=== PATIENT | male | born 1940 | race Caucasian/White ===

== ENCOUNTER 2016-12-06 17:45 | Inpatient (IN) | payer MEDICARE, OTHER ==
[~2016-12-06] VITALS: Ht 165.1 cm; Wt 78.0 kg
[2016-12-06] MEDS ORDERED: ONDANSETRON 4 MG INJ IV STA (23:54)
[2016-12-06] MEDS ORDERED: morphine 4 MG/ML VIAL IV STA (23:54)
[2016-12-06] MEDS ORDERED: SOD CHLORIDE 0.9% 500 ML IV STA (23:54)
[2016-12-07] MEDS ORDERED: LIDOCAINE/MYLANTA 40 ML BTL PO STA (00:09)
[2016-12-07 00:45] LABS: ADD UMIC YES; URINE BILIRUBIN (Dip) 2+ (NEGATIVE); URINE BLOOD (Dip) NEGATIVE (NEGATIVE); URINE COLOR AMBER (YELLOW); URINE GLUCOSE (Dip) NEGATIVE (NEGATIVE); URINE KETONES (Dip) 15 (NEGATIVE); URINE LEUKOCYTE ESTERASE (Dip) NEGATIVE (NEGATIVE); URINE NITRITE (Dip) NEGATIVE (NEGATIVE); URINE TOTAL PROTEIN (Dip) 1+ (NEGATIVE); URINE UROBILINOGEN (Dip) 0.2 E.U./dL (0.1-1.0)
[2016-12-07 00:50] LABS: HEMATOCRIT 38.2 % (42.0-52.0); HEMOGLOBIN 12.8 g/dl (14.0-18.0); LYMPHOCYTES # 1.7 10^3/ul (0.8-2.9); LYMPHOCYTES % 7.8 % (15.0-51.0); MEAN CORPUSCULAR HEMOGLOBIN 29.2 pg (29.0-33.0); MEAN CORPUSCULAR HGB CONC 33.3 g/dl (32.0-37.0); MEAN CORPUSCULAR VOLUME 87.4 fl (82.0-101.0); MEAN PLATELET VOLUME 7.1 fl (7.4-10.4); MONOCYTE # 1.4 10^3/ul (0.3-0.9); MONOCYTES % 6.6 % (0.0-11.0); NEUTROPHIL # 18.5 10^3/ul (1.6-7.5); NEUTROPHILS % 85.6 % (39.0-77.0); PLATELET COUNT 428 10^3/UL (140-440); RED BLOOD COUNT 4.37 10^6/ul (4.70-6.10); RED CELL DISTRIBUTION WIDTH 13.8 % (11.5-14.5); UNCORRECTED WBC 21.7 10^3/ul (4.8-10.8); WHITE BLOOD COUNT 21.7 10^3/ul (4.8-10.8)
[2016-12-07 00:51] LABS: ALBUMIN 4.1 g/dl (3.3-4.9)
[2016-12-07 00:52] LABS: POTASSIUM 3.6 mmol/L (3.5-5.1)
[2016-12-07 00:54] LABS: BILIRUBIN,INDIRECT 0.8 mg/dl (0-1.1); BILIRUBIN,TOTAL 0.8 mg/dl (0.2-1.3); CONDITION 1; CREATININE 1.09 mg/dl (0.61-1.24); LH ANALYZER COMMENTS 1
[2016-12-07 00:55] LABS: ALBUMIN/GLOBULIN RATIO 0.82; CALCIUM 9.7 mg/dl (8.4-10.2); TOTAL PROTEIN 9.1 g/dl (6.1-8.1)
[2016-12-07 01:00] LABS: ICTOTEST NEGATIVE (NEGATIVE); MUCUS,URINE MODERATE; SQUAMOUS EPITHELIAL CELL,UR RARE; URINE RBCS 0-2 /HPF (0)
[2016-12-07 01:01] LABS: BACTERIA,URINE RARE
--- NOTE | 2016-12-07 01:26 | RADRPT ---
PROCEDURE: CT abdomen and pelvis without intravenous contrast. CLINICAL INDICATION: Abdominal pain. TECHNIQUE: CT of the abdomen/pelvis was performed utilizing axial images with reconstructions in s agittal and coronal planes. The administered radiation dose is CTDI 12.9 mGy, DLP 812 mGy-cm. COMPARISON: No pertinent prior examinations were submitted for comparison. FINDINGS: Visualized Chest: There is mild cardiomegaly. Coronary artery calcifications are noted. Abdomen: The liver, spleen, pancreas, and adrenal glands are unremarkable. There is a small millimeter on the prior cholecystectomy is noted. There is extensive fatty infiltr ation within the gallbladder fossa with an amorphous collection of fluid. The collection measures 4 .9 (ap) x 2.8 (tr) x 2.3 (cc) cm in greatest dimensions. There is intrahepatic and extrahepatic andrzej iary ductal dilatation. The common bile duct measures up to 2 cm. A stent is noted within the dist al common bile duct, extending into the duodenum. The kidneys are without hydronephrosis. A small nonobstructive calculus is noted within the interpo lar left kidney. There is no evidence of bowel obstruction. The appendix is normal. No intra-abdominal free air is seen. A few diverticula are noted along the descending and sigmoid colon without evidence of divert iculitis. There is no evidence of intra-abdominal adenopathy or free fluid. Pelvis: A urachal diverticulum is noted along the anterior aspect of the bladder containing 3 calculi. The urinary bladder is underdistended. The prostate is unremarkable. There is no pelvic adenopathy or free fluid. Osseous structures: Unremarkable. IMPRESSION: Status post cholecystectomy with inflammatory changes and a small collection at the gallbladder wade a. A small abscess and / or myeloma is suspected. Marked intrahepatic and extrahepatic biliary ductal dilatation status post biliary stent placement. Small nonobstructive left intrarenal calculus. Mild colonic diverticulosis. Small urachal diverticulum with urinary calculi. RPTAT: HIKT .Jay Alford MD, Date Time Electronically viewed and signed by .Jay Alford MD, on 12/07/2016 01:25 .T/
[2016-12-07] MEDS ORDERED: PIPER-TAZO 3.375 GM IV (PMX) 100 ML IVPB STA (02:09)
[2016-12-07] MEDS ORDERED: VANCOMYCIN 1 GM (PMX) 250 ML IVPB STA (02:09)
--- NOTE | 2016-12-07 02:19 | ERA ---
ER Documentation Chief Complaint Date/Time DATE: 12/07/16 TIME: 02:18 Chief Complaint ABD PAIN, ON AND OFF X1 MONTH, NAUSEA/VOMITING, NO DIARRHEA HPI This is a 76-year-old male with abdominal pain in the epigastric and right upper quadrant on and off for the past month. He has had mild nausea vomiting. No diarrhea. Patient had a cholecystectomy done at an outside hospital. Pain is mild to moderate intensity, colicky in nature with no exacerbating or alleviating factors. Patient complains of low-grade temperatures as well. Vomiting is nonbilious and nonbloody. No other current complaints. ROS All systems reviewed and are negative except as per history of present illness. Allergies Allergies: Coded Allergies: No Known Allergy (Unverified , 12/06/16) PMhx/Soc History of Surgery: Yes (LIVER, GALL BLADDER) Anesthesia Reaction: No Hx Neurological Disorder: No Hx Respiratory Disorders: No Hx Cardiac Disorders: Yes (HTN, HYPERLIPIDS) Hx Psychiatric Problems: No Hx Miscellaneous Medical Probl: No Hx Alcohol Use: No Hx Substance Use: No Hx Tobacco Use: No Smoking Status: Never smoker Physical Exam Vitals Vital Signs Date Time Temp Pulse Resp B/P Pulse Ox O2 Delivery O2 Flow Rate FiO2 12/07/16 01:13 89 22 122/65 92 Room Air 12/06/16 18:03 99.2 102 17 130/69 98 Physical Exam Const: [] Head: Atraumatic Eyes: Normal Conjunctiva ENT: Normal External Ears, Nose and Mouth. Neck: Full range of motion..~ No meningismus. Resp: Clear to auscultation bilaterally Cardio: Regular rate and rhythm, no murmurs Abd: Soft, non tender, non distended. Normal bowel sounds Skin: No petechiae or rashes Back: No midline or flank tenderness Ext: No cyanosis, or edema Neur: Awake and alert Psych: Normal Mood and Affect Result Diagram: 12/07/16 0001 12/07/16 0001 Results 24 hrs Laboratory Tests Test 12/07/16 00:01 12/07/16 00:05 12/07/16 01:19 Alanine Aminotransferase (ALT/SGPT) 42IU/L Albumin 4.1g/dl Albumin/Globulin Ratio 0.82 Alkaline Phosphatase 267IU/L Anion Gap 21 Aspartate Amino Transf (AST/SGOT) 28IU/L Basophils # 0.010^3/ul Basophils % 0.0% Blood Morphology Comment Blood Urea Nitrogen 28mg/dl Calcium Level 9.7mg/dl Carbon Dioxide Level 32mmol/L Chloride Level 92mmol/L Creatinine 1.09mg/dl Direct Bilirubin 0.00mg/dl Eosinophils # 0.010^3/ul Eosinophils % 0.0% Globulin 5.00g/dl Glucose Level 127mg/dl Hematocrit 38.2% Hemoglobin 12.8g/dl Indirect Bilirubin 0.8mg/dl Lipase 57U/L Lymphocytes # 1.710^3/ul Lymphocytes % 7.8% Mean Corpuscular Hemoglobin 29.2pg Mean Corpuscular Hemoglobin Concent 33.3g/dl Mean Corpuscular Volume 87.4fl Mean Platelet Volume 7.1fl Monocytes # 1.410^3/ul Monocytes % 6.6% Neutrophils # 18.510^3/ul Neutrophils % 85.6% Nucleated Red Blood Cells # 0.010^3/ul Nucleated Red Blood Cells % 0.0/100WBC Platelet Count 10973^3/UL Potassium Level 3.6mmol/L Red Blood Count 4.3710^6/ul Red Cell Distribution Width 13.8% Sodium Level 141mmol/L Total Bilirubin 0.8mg/dl Total Protein 9.1g/dl White Blood Count 21.710^3/ul Urine Bacteria RARE Urine Bilirubin 2+ Urine Clarity CLEAR Urine Color ISAIAS Urine Glucose NEGATIVE% Urine Hemoglobin NEGATIVE Urine Ictotest NEGATIVE Urine Ketones 15 Urine Leukocyte Esterase NEGATIVE Urine Microscopic RBC 0-2/HPF Urine Microscopic WBC NONE SEEN/HPF Urine Mucus MODERATE Urine Nitrite NEGATIVE Urine Specific [place] >=1.030 Urine Squamous Epithelial Cells RARE Urine Total Protein 1+ Urine Urobilinogen 0.2 E.U./dL Urine pH 5.5 Lactic Acid Level 1.2mmol/L Current Medications Medications (Trade) Dose Ordered Sig/Zackery Route PRN Reason Start Time Stop Time Status Last Admin Dose Admin Sodium Chloride (NS) 500 ml @ 500 mls/hr Q1H STAT IV 12/06/16 23:54 12/07/16 00:53 DC 12/07/16 00:08 Morphine Sulfate (morphine) 4 mg ONCE STAT IV 12/06/16 23:54 12/07/16 00:02 DC 12/07/16 00:09 Ondansetron HCl (Zofran Inj) 4 mg ONCE STAT IV 12/06/16 23:54 12/07/16 00:02 DC 12/07/16 00:09 Miscellaneous Medication 40 ml 40 ml ONCE STAT PO 12/07/16 00:09 12/07/16 00:11 DC 12/07/16 00:51 Vancomycin HCl 250 ml @ 125 mls/hr ONCE STAT IVPB 12/07/16 02:09 12/07/16 04:08 Piperacillin Sod/ Tazobactam Sod (Zosyn 3.375gm/ 100 ml (Pmx)) 100 ml @ 200 mls/hr ONCE STAT IVPB 12/07/16 02:09 12/07/16 02:38 Procedures/MDM CT shows possible abscess formation in gallbladder fossa. Please see radiologist full dictation for report. CBC: Severe elevation of white count. Normal lactic acid. CMP: [no e/o severe acidosis, alkalosis, renal failure, diabetic ketoacidosis, liver disease] Lipase: [no e/o pancreatitis] PT/INR: [normal coagulation] Urine: [no e/o acute infection or hematuria] Medical decision-making: Patient has what seems to be abscess versus fluid collection in gallbladder fossa stemming from previous surgery. He has been started empirically on antibiotics. Patient will be admitted. Dr. Collazo is on-call for patient's IPA Departure Diagnosis: Primary Impression: Abdominal pain Qualified Code: R10.13 - Epigastric pain Additional Impression: Postoperative abscess Qualified Code: T81.4XXA - Postoperative abscess, initial encounter Condition: Serious NORMA KIM Dec 07, 2016 02:19
[2016-12-07] MEDS ORDERED: ONDANSETRON 4 MG INJ IV PRN (03:00)
[2016-12-07] MEDS ORDERED: morphine 4 MG/ML VIAL IV PRN (03:00)
--- NOTE | 2016-12-07 03:09 | QN ---
Documentation Comment H&P dict a/p \1. gi: prolonged symptoms for 2 years sing gb surg but 2 week sworse with difficulty eating, nauseas, and RUQ pain. some weight loss. ct shows migrating stent and gb fossa fluid collection. plan hida, mrcp, needle drainage of fluid, consider drain, gi eval, anticipate stent replacement TAYLOR KING MD Dec 07, 2016 03:09
[2016-12-07 03:27] VITALS: TEMP 99.6
[2016-12-07 03:34] LABS: INR 1.18; PROTIME 15.1 Sec (12.2-14.2); PT RATIO 1.2
[2016-12-07 03:35] LABS: PARTIAL THROMBOPLASTIN TIME 29.1 Sec (25.0-35.0)
[2016-12-07 05:00] VITALS: BP 141/57; PULSE 83; RESP 18; Ht 165.1 cm; Wt 78.0 kg
[2016-12-07] MEDS: PANTOPRAZOLE (EC) 40 MG TAB PO SCH (06:11)
[2016-12-07] MEDS: metroNIDAZOLE 500 MG/NS (PMX) 100 ML IVPB SCH ×4 (06:12→19:39)
[2016-12-07 07:46] VITALS: BP 127/58; RESP 20
[2016-12-07] MEDS: ACETAMINOPHEN 325 MG TAB PO PRN ×2 (08:18→20:27)
--- NOTE | 2016-12-07 08:21 | HP ---
DATE OF ADMISSION: 12/07/2016 CHIEF COMPLAINT: Abdominal pain. HISTORY OF PRESENT ILLNESS: Mr. De Souza presents to the emergency room at [facility] with a 2 -year history of abdominal pain, bloating, and nausea, which he states began after he had cholecyste ctomy performed approximately 2 years ago at [place]. Subsequent to that he had a stent placed, but he does not recall any of the details of this procedure or why it may have been done. He does n ot recall which doctor may have done this for him, though he does state that it took place at [facility]. He states that in the last 2 weeks or so this pain, nausea, and bloating has been somewhat wo rse. He has had difficulty tolerating food, though he is able to keep water down. He states he is losing weight, though he does not quantify how much. It is clear that he has had to take in his bel t at least 1 more notch. PAST MEDICAL HISTORY: Nil. MEDICATIONS: As an outpatient, nil. ALLERGIES: THE PATIENT STATES HE MAY BE ALLERGIC TO PENICILLIN. SOCIAL HISTORY: Patient lives in [place] with his . He is independent of activities of daily l iving. Does not use a cane or walker. Denies tobacco, alcohol, or illicit drug use. FAMILY HISTORY: Noncontributory. REVIEW OF SYSTEMS: Five systems were reviewed and found not to be revealing. PHYSICAL EXAMINATION: VITAL SIGNS: Blood pressure is 122/65, pulse rate 89, respirations 22, temperature 99.2. GENERAL: A pleasant elderly man in no acute distress, alert. HEENT: Normocephalic, atraumatic, without evident scleral icterus, perioral cyanosis. Mucous membr anes are moist. NECK: Soft and supple without masses. No evidence of jugular venous distention or carotid bruits. CHEST: Clear to auscultation and percussion bilaterally. HEART: Regular rate and rhythm. S1, S2. No added sounds. ABDOMEN: Soft, minimally tender in the right upper quadrant, though patient identifies this as the location of his greatest symptomatology. There is no palpable hepatosplenomegaly. EXTREMITIES: Without clubbing, cyanosis or edema. SKIN: Without rashes. NEUROLOGIC: Grossly intact. LABORATORY STUDIES: Reveal a hemoglobin of 12.8 g/dL, white count 21,700, platelets of 428,000. So dium is 141, potassium 3.6, chloride 92, bicarbonate 22, BUN 28, creatinine 1.09, glucose 127. Live r function tests reveal an AST of 28, ALT 42, alkaline phosphatase 267. Total bilirubin 0.8. CT sc an of abdomen performed without contrast reveals a collection of fluid in the gallbladder fossa as w ell as a stent which is migrating out of the common bile duct and into the duodenum. There is intra and extrahepatic biliary dilatation identified. ASSESSMENT AND PLAN: 1. Gastrointestinal: The patient with dyspepsia, abdominal pain, and weight loss, unclear etiology , likely related to the underlying disease for which patient had a biliary stent placed. Stent is n ow migrating out of its intended location. We will plan to obtain Gastroenterology consultation [facility] Dr. Calle, and anticipate that stent replacement will become necessary on this admission. 2. Patient with collection of fluid in the gallbladder fossa of unclear etiology or clinical signif icance. We will obtain a CT-guided needle drainage of this fluid, send for culture and cytology. C onsider indwelling pigtail drain for this. 3. Prophylaxis with thromboembolic disease giovanni. Dictated By: TAYLOR KING MD RER/NTS Conf#: [id number] DID#: [id number]
[2016-12-07] MEDS: AZTREONAM 1 GM/NS (PMX) 50 ML IVPB SCH ×4 (08:51→18:17)
--- NOTE | 2016-12-07 10:22 | RADRPT ---
PROCEDURE: MRCP. CLINICAL INDICATION: Right upper quadrant pain. TECHNIQUE: MRCP was performed on the a high-resolution, high Aisha field strength scanner. Patien t was examined without contrast. 3-D coronal rotating MIP images of the biliary tree are available for review. COMPARISON: CT abdomen and pelvis 12/07/2016. FINDINGS: Gallbladder is surgically absent. There is a multiloculated unorganized fluid collection in the riki gical bed. The largest pocket measures up to 5 x 2.5 cm on single axial image 4-17. Significant in flammatory changes are seen in the right upper quadrant. There is marked intrahepatic and extrahepa tic biliary ductal dilatation. There is approximately 3 cm hypointense oval-shaped structure in the distal CBD. The pancreatic duct, as visualized, is equally unremarkable. IMPRESSION: 1. Markedly dilated intrahepatic and extrahepatic biliary ducts. Approximately 3 cm oval-shaped fi lling defect in the common bile duct. Recommend ERCP for further evaluation. 2. Multiloculated amorphous unorganized fluid collection in the cholecystectomy bed. The largest p ocket measures up to 5 x 2.5 cm. Again this might represent developing abscess versus biloma. RPTAT: BB .Yvan Gutierrez MD, MD Date Time Electronically viewed and signed by .Yvan Gutierrez MD, MD on 12/07/2016 10:21 .O/
[2016-12-07] MEDS: SOD CHLORIDE 0.9% 1,000 ML IV SCH (11:17)
--- NOTE | 2016-12-07 14:41 | PN ---
Date/Time of Note Date/Time of Note DATE: 12/07/16 TIME: 14:31 Assessment/Plan VTE Prophylaxis VTE Prophylaxis Intervention: SCD's Lines/Catheters IV Catheter Type (from Nrsg): Saline Lock Assessment/Plan Assessment/Plan 76 yo male with: 1. Migrated biliary stent with intra hepatic and CBD dilatation, patient presented with dyspepsia, abdominal pain, and weight loss. Leukocytosis concerning for infected stent Continue Aztreonam and Flagyl Dr Calle has been consulted for ERCP 2. Small collection of fluid in the gallbladder fossa of unclear etiology or clinical significance, too small for IR drainage per Dr Arroyo 3. Hypertension: patient does not remember medication he takes for HTN 4. Hyperlipidemia: on statin rx but doesn't remember which medication Prophylaxis: PPI for GI ppx and SCDs for DVT ppx Disposition: GI c/s pending. Subjective 24 Hr Interval Summary Free Text/Dictation Per IR, Dr Arroyo fluid collection too small for drainage Awaiting evaluation by GI Dr Calle for needs for ERCP Exam/Review of Systems Vital Signs Vitals Vital Signs Date Time Temp Pulse Resp B/P Pulse Ox O2 Delivery O2 Flow Rate FiO2 12/07/16 07:46 97.6 81 20 127/58 94 12/07/16 05:00 Room Air Intake and Output 12/06/16 12/06/16 12/07/16 15:00 23:00 07:00 Intake Total 600 ml Balance 600 ml Exam Constitutional: alert, oriented, well developed Respiratory: clear to auscultation, normal air movement Cardiovascular: regular rate and rhythm Gastrointestinal: soft, tender (RUQ) Musculoskeletal: nl extremities to inspection Extremities: normal pulses, other (no edema, clubbing or cyanosis ) Neurological: IOS DEVELOPER II-XII intact, nl mental status, nl speech, nl strength Results Result Diagram: 12/07/16 0001 12/07/16 0001 Results 24 hrs Laboratory Tests Test 12/07/16 00:01 12/07/16 00:05 12/07/16 01:19 Activated Partial Thromboplast Time 29.1 Alanine Aminotransferase (ALT/SGPT) 42 Albumin 4.1 Albumin/Globulin Ratio 0.82 Alkaline Phosphatase 267 H Anion Gap 21 H Aspartate Amino Transf (AST/SGOT) 28 Basophils # 0.0 Basophils % 0.0 Blood Morphology Comment Blood Urea Nitrogen 28 H Calcium Level 9.7 Carbon Dioxide Level 32 H Chloride Level 92 L Creatinine 1.09 Direct Bilirubin 0.00 Eosinophils # 0.0 Eosinophils % 0.0 Globulin 5.00 H Glucose Level 127 Hematocrit 38.2 L Hemoglobin 12.8 L INR International Normalized Ratio 1.18 Indirect Bilirubin 0.8 Lipase 57 Lymphocytes # 1.7 Lymphocytes % 7.8 L Mean Corpuscular Hemoglobin 29.2 Mean Corpuscular Hemoglobin Concent 33.3 Mean Corpuscular Volume 87.4 Mean Platelet Volume 7.1 L Monocytes # 1.4 H Monocytes % 6.6 Neutrophils # 18.5 H Neutrophils % 85.6 H Nucleated Red Blood Cells # 0.0 Nucleated Red Blood Cells % 0.0 Platelet Count 428 Potassium Level 3.6 Prothrombin Time 15.1 H Prothrombin Time Ratio 1.2 Red Blood Count 4.37 L Red Cell Distribution Width 13.8 Sodium Level 141 Total Bilirubin 0.8 Total Protein 9.1 H White Blood Count 21.7 H Urine Bacteria RARE Urine Bilirubin 2+ H Urine Clarity CLEAR Urine Color ISAIAS Urine Glucose NEGATIVE Urine Hemoglobin NEGATIVE Urine Ictotest NEGATIVE Urine Ketones 15 Urine Leukocyte Esterase NEGATIVE Urine Microscopic RBC 0-2 Urine Microscopic WBC NONE SEEN Urine Mucus MODERATE Urine Nitrite NEGATIVE Urine Specific [place] >=1.030 H Urine Squamous Epithelial Cells RARE Urine Total Protein 1+ H Urine Urobilinogen 0.2 E.U./dL Urine pH 5.5 Lactic Acid Level 1.2 Medications Medications Current Medications Metronidazole 100 ml @ 100 mls/hr Q8H IVPB Last administered on 12/07/16 13: 16; Admin Dose 100 MLS/HR; Start 12/07/16 at 03:00 Aztreonam (Azactam 1gm/NS (Pmx)) 50 ml @ 100 mls/hr Q8H IVPB Last administered on 12/07/16 08:51; Admin Dose 100 MLS/HR; Start 12/07/16 at 03:00 Acetaminophen (Tylenol Tab) 650 mg Q4H PRN PO pain/fever Last administered on 08:18; Admin Dose 650 MG; Start 12/07/16 at 03:00 Ondansetron HCl (Zofran Inj) 4 mg Q4H PRN IV nausea; Start 12/07/16 at 03:00 Morphine Sulfate (morphine) 4 mg Q4H PRN IV pain; Start 12/07/16 at 03:00 Pantoprazole 40 mg 40 mg DAILY@06 PO Last administered on 12/07/16t 06:11; Admin Dose 40 MG; Start 12/07/16 at 06:00 Sodium Chloride (NS) 1,000 ml @ 100 mls/hr Q10H IV Last administered on t 11:17; Admin Dose 100 MLS/HR; Start 12/07/16 at 11:00 Procedures Procedures PROCEDURE: MRCP. CLINICAL INDICATION: Right upper quadrant pain. TECHNIQUE: MRCP was performed on the a high-resolution, high Aisha field strength scanner. Patient was examined without contrast. 3-D coronal rotating MIP images of the biliary tree are available for review. COMPARISON: CT abdomen and pelvis 12/07/2016. FINDINGS: Gallbladder is surgically absent. There is a multiloculated unorganized fluid collection in the surgical bed. The largest pocket measures up to 5 x 2.5 cm on single axial image 4-17. Significant inflammatory changes are seen in the right upper quadrant. There is marked intrahepatic and extrahepatic biliary ductal dilatation. There is approximately 3 cm hypointense oval-shaped structure in the distal CBD. The pancreatic duct, as visualized, is equally unremarkable. IMPRESSION: 1. Markedly dilated intrahepatic and extrahepatic biliary ducts. Approximately 3 cm oval-shaped filling defect in the common bile duct. Recommend ERCP for further evaluation. 2. Multiloculated amorphous unorganized fluid collection in the cholecystectomy bed. The largest pocket measures up to 5 x 2.5 cm. Again this might represent developing abscess versus biloma. RPTAT: BB .Yvan Gutierrez MD, MD Date Time Electronically viewed and signed by .Yvan Gutierrez MD, on 12/07/2016 10:21 AJ SMITH Dec 07, 2016 14:41
[2016-12-07] MEDS ORDERED: hydrALAzine 20 MG INJ IV PRN (15:30)
--- NOTE | 2016-12-07 17:37 | RADRPT ---
PROCEDURE: HIDA scan CLINICAL INDICATION: 76 -year-old patient with abdominal pain, status post cholecystectomy. TECHNIQUE: Following the intravenous injection of 8.4 mCi of Tc-99m mebrofenin, multiple images of the abdomen were obtained up to 60 minutes post injection. COMPARISON: No prior studies. MRI of the abdomen dated December 07, 2016. FINDINGS: The liver is promptly visualized, demonstrates homogeneous distribution of radionuclide. There is visualization of the common bile duct and gastrointestinal activity within normal time. The gallbladder is not visualized which is most compatible with the prior cholecystectomy. IMPRESSION: 1. No abnormal areas of increased tracer activity in the surgical bed region corresponding to fluid collection in the gallbladder fossa region on the previous MRI, with no scintigraphic evidence to s uggest the presence of biliary leak. 2. No evidence of common bile duct obstruction. 3. Nonvisualization of the gallbladder consistent with the prior cholecystectomy. RPTAT: HH .Kristel Mueller MD, MD Date Time Electronically viewed and signed by .Kristel Mueller MD, on 12/07/2016 17:36 .L/
[2016-12-07 20:32] VITALS: BP 118/56; RESP 20
[2016-12-08] VITALS (11 sets, daily range): BP systolic 110–147; BP diastolic 55–67; PULSE 66–76; RESP 14–20
[2016-12-08] MEDS: SOD CHLORIDE 0.9% 1,000 ML IV SCH ×4 (02:54→17:00)
[2016-12-08] MEDS: AZTREONAM 1 GM/NS (PMX) 50 ML IVPB SCH ×3 (02:57→21:54)
[2016-12-08] MEDS: metroNIDAZOLE 500 MG/NS (PMX) 100 ML IVPB SCH ×3 (03:50→20:43)
[2016-12-08] MEDS ORDERED: HYDROCODONE/APAP (7.5/325) TAB PO PRN (04:00)
[2016-12-08] MEDS: PANTOPRAZOLE (EC) 40 MG TAB PO SCH (06:00)
[2016-12-08 06:26] LABS: BASOPHILS % 0.1 % (0.0-2.0); EOSINOPHILS % 0.2 % (0.0-7.0); HEMATOCRIT 30.1 % (42.0-52.0); HEMOGLOBIN 10.3 g/dl (14.0-18.0); LYMPHOCYTES % 5.7 % (15.0-51.0); MEAN CORPUSCULAR HEMOGLOBIN 29.7 pg (29.0-33.0); MEAN CORPUSCULAR HGB CONC 34.1 g/dl (32.0-37.0); MEAN CORPUSCULAR VOLUME 87.3 fl (82.0-101.0); MEAN PLATELET VOLUME 7.4 fl (7.4-10.4); MONOCYTE # 1.2 10^3/ul (0.3-0.9); MONOCYTES % 6.9 % (0.0-11.0); NEUTROPHIL # 15.5 10^3/ul (1.6-7.5); NEUTROPHILS % 87.1 % (39.0-77.0); PLATELET COUNT 316 10^3/UL (140-440); RED BLOOD COUNT 3.45 10^6/ul (4.70-6.10); RED CELL DISTRIBUTION WIDTH 13.8 % (11.5-14.5); UNCORRECTED WBC 17.8 10^3/ul (4.8-10.8); WHITE BLOOD COUNT 17.8 10^3/ul (4.8-10.8)
[2016-12-08 06:35] LABS: CONDITION 1; PHOSPHORUS 3.4 mg/dl (2.5-4.9)
[2016-12-08 06:36] LABS: CHOL/HDL RATIO 3.7 RATIO
[2016-12-08 06:39] LABS: INR 1.44; PROTIME 17.6 Sec (12.2-14.2); PT RATIO 1.4
[2016-12-08 06:40] LABS: PARTIAL THROMBOPLASTIN TIME 34.6 Sec (25.0-35.0)
[2016-12-08 07:20] LABS: ALBUMIN 2.7 g/dl (3.3-4.9)
[2016-12-08 07:21] LABS: POTASSIUM 3.9 mmol/L (3.5-5.1)
[2016-12-08 07:23] LABS: ALBUMIN/GLOBULIN RATIO 0.79; BILIRUBIN,INDIRECT 0.4 mg/dl (0-1.1); BILIRUBIN,TOTAL 0.4 mg/dl (0.2-1.3); CREATININE 1.22 mg/dl (0.61-1.24); TOTAL PROTEIN 6.1 g/dl (6.1-8.1)
[2016-12-08 07:24] LABS: CALCIUM 8.4 mg/dl (8.4-10.2)
--- NOTE | 2016-12-08 13:41 | PN ---
Date/Time of Note Date/Time of Note DATE: 12/08/16 TIME: 13:33 Assessment/Plan VTE Prophylaxis VTE Prophylaxis Intervention: SCD's Lines/Catheters IV Catheter Type (from Nrsg): Peripheral IV Assessment/Plan Assessment/Plan 76 yo male with: 1. Migrated biliary stent with intra hepatic and CBD dilatation, patient presented with dyspepsia, abdominal pain, and weight loss. Leukocytosis concerning for infected stent, WBC trending down Continue Aztreonam and Flagyl NPO for ERCP today with Dr Calle. 2. Small collection of fluid in the gallbladder fossa of unclear etiology or clinical significance, too small for IR drainage per Dr Arroyo 3. Hypertension: Resume Lisinopril 20 mg po daily once able to take po 4. Hyperlipidemia: on Lipitor. Prophylaxis: PPI for GI ppx and SCDs for DVT ppx Disposition: ERCP today. Subjective 24 Hr Interval Summary Free Text/Dictation Patient doing OK, WBC trending down and low grade temp overnight Remains stable and NPO for ERCP today Exam/Review of Systems Vital Signs Vitals Vital Signs Date Time Temp Pulse Resp B/P Pulse Ox O2 Delivery O2 Flow Rate FiO2 12/08/16 07:50 99.3 72 18 110/55 93 12/07/16 05:00 Room Air Intake and Output 12/07/16 12/07/16 12/08/16 15:00 23:00 07:00 Intake Total 100 ml 800 ml 750 ml Output Total 0 ml 300 ml Balance 100 ml 800 ml 450 ml Exam Constitutional: alert, oriented, well developed Respiratory: clear to auscultation, normal air movement Cardiovascular: nl pulses, regular rate and rhythm Gastrointestinal: soft, tender (RUQ) Musculoskeletal: nl extremities to inspection Extremities: normal pulses, other (no edema, clubbing or cyanosis ) Neurological: LABOR DELIVERY SPECIALIST II-XII intact, nl mental status, nl speech, nl strength Results Result Diagram: 12/08/16 0505 12/08/16 0505 Results 24 hrs Laboratory Tests Test 12/08/16 05:05 Activated Partial Thromboplast Time 34.6 Alanine Aminotransferase (ALT/SGPT) 38 Albumin 2.7 #L Albumin/Globulin Ratio 0.79 Alkaline Phosphatase 153 H Anion Gap 18 H Aspartate Amino Transf (AST/SGOT) 21 Basophils # 0.0 Basophils % 0.1 Blood Morphology Comment Blood Urea Nitrogen 31 H Calcium Level 8.4 Carbon Dioxide Level 27 Chloride Level 104 # Cholesterol Level 53 L Cholesterol/HDL Ratio 3.7 Creatinine 1.22 Direct Bilirubin 0.00 Eosinophils # 0.0 Eosinophils % 0.2 Globulin 3.40 H Glucose Level 97 HDL Cholesterol 14 L Hematocrit 30.1 #L Hemoglobin 10.3 L INR International Normalized Ratio 1.44 Indirect Bilirubin 0.4 LDL Cholesterol, Calculated 29 Lymphocytes # 1.0 Lymphocytes % 5.7 L Magnesium Level 2.0 Mean Corpuscular Hemoglobin 29.7 Mean Corpuscular Hemoglobin Concent 34.1 Mean Corpuscular Volume 87.3 Mean Platelet Volume 7.4 Monocytes # 1.2 H Monocytes % 6.9 Neutrophils # 15.5 H Neutrophils % 87.1 H Nucleated Red Blood Cells # 0.0 Nucleated Red Blood Cells % 0.0 Phosphorus Level 3.4 Platelet Count 316 # Potassium Level 3.9 Prothrombin Time 17.6 H Prothrombin Time Ratio 1.4 Red Blood Count 3.45 #L Red Cell Distribution Width 13.8 Sodium Level 145 H Total Bilirubin 0.4 Total Protein 6.1 # Triglycerides Level 48 White Blood Count 17.8 H Medications Medications Current Medications Metronidazole 100 ml @ 100 mls/hr Q8H IVPB Last administered on 12/08/16 11: 45; Admin Dose 100 MLS/HR; Start 12/07/16 at 03:00 Aztreonam (Azactam 1gm/NS (Pmx)) 50 ml @ 100 mls/hr Q8H IVPB Last administered on 12/08/16 11:03; Admin Dose 100 MLS/HR; Start 12/07/16 at 03:00 Acetaminophen (Tylenol Tab) 650 mg Q4H PRN PO pain/fever Last administered on 20:27; Admin Dose 650 MG; Start 12/07/16 at 03:00 Ondansetron HCl (Zofran Inj) 4 mg Q4H PRN IV nausea; Start 12/07/16 at 03:00 Morphine Sulfate (morphine) 4 mg Q4H PRN IV pain; Start 12/07/16 at 03:00 Pantoprazole 40 mg 40 mg DAILY@06 PO Last administered on 12/07/16 06:11; Admin Dose 40 MG; Start 12/07/16 at 06:00 Sodium Chloride (NS) 1,000 ml @ 100 mls/hr Q10H IV Last administered on t 02:54; Admin Dose 100 MLS/HR; Start 12/07/16 at 11:00 Hydralazine HCl (Apresoline) 10 mg Q8H PRN IV ELEVATED BLOOD PRESSURE; Start at 15:30 AJ SMITH Dec 08, 2016 13:41
[2016-12-08] MEDS ORDERED: SOD CHLORIDE 0.9% 250 ML IV* ONE (13:43)
[2016-12-08] MEDS ORDERED: INDOMETHACIN 50 MG SUPP PR ONE (17:01)
[2016-12-08] MEDS ORDERED: IOHEXOL 300MG/ML 30 ML BTL ONE (17:01)
--- NOTE | 2016-12-08 17:23 | CONS ---
DATE OF ADMISSION: 12/07/2016 DATE OF CONSULTATION: 12/08/2016 TYPE OF CONSULTATION: Gastroenterology. Dear Dr. Bryant: Thank you for asking me to see Mr. De Souza in GI consultation . HISTORY OF PRESENT ILLNESS: The patient is a 76-year-old gentleman who was admitted to the hospital on 12/06/2016 because of abdominal pain. Patient is a poor historian; however, he had a c holecystectomy done 2 years ago. Since then, he has been experiencing upper abdominal pain from erika e to time and also history indicates that he had ERCP done and stent placed. [facility] which showed evidence of CAT scan showing post-cholecystectomy with inflammatory changes and small collection at the gallbladder fossa. Small abscess maybe suspected, marked intrahepatic and extrahepatic biliary dilatation noted. There stent placement noted in the b iliary system. LABORATORY WORKUP: Please refer to the report for more information. The MRI shows evidence of a ma rkedly dilated intra and extrahepatic biliary duct. There is a 3 cm oval shaped filling defect note d in the common bile duct, multiloculated amorphous amalgamated fluid collection seen in the cholecy stectomy bed which measures about 5 cm. The HIDA scan shows no abnormality area of increased tracer activity in the surgical bed, no evidence of common bile duct obstruction. Nonvisualization of the gallbladder consistent with prior cholecystectomy. There is no evidence of biliary leak. REVIEW OF SYSTEM: He has history of no significant other medical problems. SOCIAL HISTORY: The patient does not smoke or drink. MEDICATIONS: Prior to the admission, please refer to the chart; however, inpatient medications incl ude: 1. Azactam. 2. Metronidazole 3. Hydralazine. 4. Tylenol. 5. Morphine. 6. Zofran. 7. Pantoprazole. PHYSICAL EXAMINATION: GENERAL: The patient is a 76-year-old male who at the time of my consultation appeared abdiel rt, well built and is afebrile. CARDIOVASCULAR: Normal heart sounds. RESPIRATORY: Normal breath sounds. ABDOMEN: Showed a soft abdomen with no palpable masses. VITAL SIGNS: Temperature 99.3, blood pressure 110/55. RECTAL: Normal heart sounds. RESPIRATORY: Normal breath sounds. ABDOMEN: Showed unremarkable. LABORATORY FUNCTIONS: WBC 17,800. Yesterday, it was 21,700, platelet count 316,000. Prothrombin t grace 17.6. The alkaline phosphatase is 153. Yesterday, it was 261, creatinine 1.07, BUN 28, total p rotein 9.1 yesterday, today is 6.1, potassium 4.9, AST 21, ALT 38, alkaline phosphatase came down to 153 from 267, lipase 57. CLINICAL IMPRESSION: 1. The patient has evidence of abnormal liver functions. There is evidence of intrahepatic and ext rahepatic biliary dilatation. There is a filling defect noted in the distal common bile duct. 2. The patient presenting with history of abdominal pain. There is evidence of a filling defect no vidal in the distal common bile duct. This could be a stone or this could be a tumor; however, the CA T scan does show there is evidence of a biliary stent. PLAN: At this time, I would recommend ERCP and see the nature of the filling defect and the patient may need a stone removal. He may need lithotripsy. If it is a tumor, he may need a biopsy. Once again, doctor, thank you for this consultation. Dictated By: JOSÉ MANUEL VILLAFANA/GURINDER Conf#: [id number] DID#: [id number]
[2016-12-08] MEDS ORDERED: ROCURONIUM 50 MG INJ ONE (18:11)
[2016-12-08] MEDS ORDERED: PROPOFOL 20 ML ONE (18:11)
[2016-12-08] MEDS ORDERED: FENTAnyl 50 MCG/ML VIAL ONE (18:11)
[2016-12-08] MEDS ORDERED: LIDOCAINE 100 MG SYRINGE ONE (18:11)
[2016-12-08] MEDS ORDERED: DEXAMETHASONE 4 MG/ML 1 ML INJ ONE (18:11)
[2016-12-08] MEDS ORDERED: ONDANSETRON 4 MG INJ ONE (18:12)
[2016-12-08] MEDS ORDERED: MIDAZOLAM 1 MG/ML 2 ML INJ ONE (18:12)
[2016-12-08] MEDS ORDERED: MIDAZOLAM 1 MG/ML 2 ML INJ IV PRN (19:00)
[2016-12-08] MEDS ORDERED: HYDROmorphONE (0.2 MG/ML) 10ML SYG IV PRN ×3 (19:00)
[2016-12-08] MEDS ORDERED: LABETALOL HCL 20MG INJ IV PRN (19:00)
[2016-12-08] MEDS ORDERED: FENTAnyl 50 MCG/ML VIAL IV PRN ×3 (19:00)
[2016-12-08] MEDS ORDERED: DIPHENHYDRAMINE 50 MG INJ IV PRN (19:00)
[2016-12-08] MEDS ORDERED: EPHEDrine SULFATE 50 MG/5 ML SYG IV PRN (19:00)
[2016-12-08] MEDS ORDERED: ONDANSETRON 4 MG INJ IV PRN (19:00)
[2016-12-08] MEDS ORDERED: hydrALAzine 20 MG INJ IV PRN (19:00)
[2016-12-08] MEDS ORDERED: TRIMETHOBENZAMIDE 100 MG/ML VIAL IM PRN (19:00)
[2016-12-08] MEDS ORDERED: MEPERIDINE 25 MG INJ IV PRN (19:00)
--- NOTE | 2016-12-08 22:16 | RADRPT ---
PROCEDURE: Fluoroscopy services. CLINICAL INDICATION: Choledocholithiasis. TECHNIQUE: Fluoroscopy services during ERCP. COMPARISON: MRI abdomen dated 06/06/2017. FINDINGS: Fluoroscopy services during ERCP with balloon sweep and removal of stones. There is retrograde opaci fication of the biliary structures. 87 seconds of plastic were employed during this procedure. IMPRESSION: Fluoroscopy surfaces during ERCP. RPTAT: [facility] Lucille Kathleen Physician Date Time Electronically viewed and signed by Lucille Kathleen Physician on 12/08/2016 22:16 RS/
--- NOTE | 2016-12-09 00:48 | GILP ---
DATE OF PROCEDURE: PROCEDURE: ERCP, removal of CBD stent, removal of multiple large CBD stones after removing the CBD stent. PREOPERATIVE DIAGNOSIS: The patient presenting with history of abdominal pain, cholangitis. MRCP _ ___ of the abdomen showed evidence of a 3 cm filling defect in the distal common bile duct, rule out choledocholithiasis, rule out neoplastic process of the bile duct. POSTOPERATIVE DIAGNOSES: Multiple large stones were removed including one of them was about 3 cm in diameter. After removing the stent, common bile duct stones were removed. DESCRIPTION OF PROCEDURE: After the informed written consent was obtained, the patient was intubate d by anesthesiologist, Dr. Encinas. While the patient was in the supine position, Olympus video s ar-viewing duodenoscope was inserted into the oropharynx, then into the esophagus, subsequently int o the stomach and then into duodenum. There is evidence of a stent noted coming out of the common b ile duct, and with the help of a snare, the stent was grabbed and brought out through the mouth miguel g with endoscope. Subsequently the scope was reintroduced, and stone extraction balloon was inserte d into the common hepatic duct area. Contrast was injected. Multiple filling defects were noted. A 15 x 18 size balloon was used, and balloon was inflated. By sweeping technique, multiple large st ones including one of them probably 3 cm in diameter were all removed. Multiple sweepings were perf ormed. No more filling defects noted at the end of the procedure. Photographs were obtained and pr ocedure was terminated. PLAN: Recommend follow the patient closely. Dictated By: JOSÉ MANUEL VILLAFANA/GURINDER Conf#: [id number] DID#: [id number] CC: AJ SMITH MD;*EndCC*
[2016-12-09] MEDS: SOD CHLORIDE 0.9% 1,000 ML IV SCH ×4 (03:56→23:00)
[2016-12-09] MEDS: AZTREONAM 1 GM/NS (PMX) 50 ML IVPB SCH ×3 (05:31→21:29)
[2016-12-09] MEDS: PANTOPRAZOLE (EC) 40 MG TAB PO SCH (05:34)
[2016-12-09 05:56] LABS: BASOPHILS % 0.1 % (0.0-2.0); EOSINOPHILS % 0.1 % (0.0-7.0); HEMATOCRIT 29.4 % (42.0-52.0); LYMPHOCYTES # 0.8 10^3/ul (0.8-2.9); LYMPHOCYTES % 5.5 % (15.0-51.0); MEAN CORPUSCULAR HEMOGLOBIN 29.9 pg (29.0-33.0); MEAN CORPUSCULAR HGB CONC 34.1 g/dl (32.0-37.0); MEAN CORPUSCULAR VOLUME 87.8 fl (82.0-101.0); MEAN PLATELET VOLUME 7.3 fl (7.4-10.4); MONOCYTE # 0.4 10^3/ul (0.3-0.9); MONOCYTES % 2.8 % (0.0-11.0); NEUTROPHIL # 12.8 10^3/ul (1.6-7.5); NEUTROPHILS % 91.5 % (39.0-77.0); PLATELET COUNT 304 10^3/UL (140-440); RED BLOOD COUNT 3.35 10^6/ul (4.70-6.10); RED CELL DISTRIBUTION WIDTH 13.9 % (11.5-14.5)
[2016-12-09] MEDS ORDERED: metroNIDAZOLE 500 MG/NS (PMX) 100 ML IVPB SCH (06:00)
[2016-12-09 06:12] LABS: CONDITION 1; LH ANALYZER COMMENTS 1
[2016-12-09 06:20] LABS: POTASSIUM 3.9 mmol/L (3.5-5.1)
[2016-12-09 06:23] LABS: CREATININE 0.82 mg/dl (0.61-1.24)
[2016-12-09 06:24] LABS: CALCIUM 8.7 mg/dl (8.4-10.2)
[2016-12-09 07:28] VITALS: BP 141/66; RESP 48
[2016-12-09 07:49] LABS: MAGNESIUM 2.2 mg/dl (1.7-2.5)
[2016-12-09 08:13] VITALS: PULSE 56
--- NOTE | 2016-12-09 14:18 | PN ---
Date/Time of Note Date/Time of Note DATE: 12/09/16 TIME: 14:11 Assessment/Plan VTE Prophylaxis VTE Prophylaxis Intervention: SCD's Lines/Catheters IV Catheter Type (from Nrs): Peripheral IV Urinary Cath still in place: No Assessment/Plan Assessment/Plan 76 yo male with: 1. ? Migrated biliary stent with intra hepatic and CBD dilatation, s/p ERCP with actual findings of choledocholithiasis Dyspepsia and abdominal pain resolved, leukocytosis much improved Tolerating po and advancing diet Continue Aztreonam and Flagyl with plans to discharge on Levaquin and flagyl if needed Appreciate assistance and help from Dr Calle 2. Small collection of fluid in the gallbladder fossa of unclear etiology or clinical significance, too small for IR drainage per Dr Arroyo, continue abx at discharge 3. Hypertension: Resume Lisinopril 20 mg po daily as needed at discharge. 4. Hyperlipidemia: on Lipitor. Prophylaxis: PPI for GI ppx and SCDs for DVT ppx Disposition: D/c plan tomorrow if remains stable. Subjective 24 Hr Interval Summary Free Text/Dictation Patient doing well, no complaints, tolerating po and no abdo pain today Afebrile and WBC trending down D/c plan home tomorrow hopefully Exam/Review of Systems Vital Signs Vitals Vital Signs Date Time Temp Pulse Resp B/P Pulse Ox O2 Delivery O2 Flow Rate FiO2 12/09/16 08:13 56 12/09/16 07:28 96.6 48 141/66 99 12/08/16 19:48 Nasal Cannula 2.0 Intake and Output 12/08/16 12/08/16 12/09/16 15:00 23:00 07:00 Intake Total 1450 ml 875 ml Output Total 800 ml 400 ml Balance 650 ml 475 ml Exam Constitutional: alert, oriented, well developed Respiratory: clear to auscultation, normal air movement Cardiovascular: nl pulses, regular rate and rhythm Gastrointestinal: non-tender, soft Musculoskeletal: nl extremities to inspection, nl gait and stance Extremities: normal pulses, other (no edema, clubbing or cyanosis ) Neurological: THIRD COOK II-XII intact, nl mental status, nl speech, nl strength Results Result Diagram: 12/09/16 0510 12/09/16 0510 Results 24 hrs Laboratory Tests Test 12/09/16 05:10 Anion Gap 15 Basophils # 0.0 Basophils % 0.1 Blood Morphology Comment Blood Urea Nitrogen 35 H Calcium Level 8.7 Carbon Dioxide Level 30 Chloride Level 104 Creatinine 0.82 Eosinophils # 0.0 Eosinophils % 0.1 Glucose Level 182 Hematocrit 29.4 L Hemoglobin 10.0 L Lymphocytes # 0.8 Lymphocytes % 5.5 L Magnesium Level 2.2 Mean Corpuscular Hemoglobin 29.9 Mean Corpuscular Hemoglobin Concent 34.1 Mean Corpuscular Volume 87.8 Mean Platelet Volume 7.3 L Monocytes # 0.4 Monocytes % 2.8 Neutrophils # 12.8 H Neutrophils % 91.5 H Nucleated Red Blood Cells # 0.0 Nucleated Red Blood Cells % 0.0 Phosphorus Level 3.0 Platelet Count 304 Potassium Level 3.9 Red Blood Count 3.35 L Red Cell Distribution Width 13.9 Sodium Level 145 H White Blood Count 14.0 #H Medications Medications Current Medications Acetaminophen (Tylenol Tab) 650 mg Q4H PRN PO pain/fever Last administered on 20:27; Admin Dose 650 MG; Start 12/07/16 at 03:00 Ondansetron HCl (Zofran Inj) 4 mg Q4H PRN IV nausea; Start 12/07/16 at 03:00 Morphine Sulfate (morphine) 4 mg Q4H PRN IV pain; Start 12/07/16 at 03:00 Pantoprazole 40 mg 40 mg DAILY@06 PO Last administered on 12/09/16 05:34; Admin Dose 40 MG; Start 12/07/16 at 06:00 Sodium Chloride (NS) 1,000 ml @ 100 mls/hr Q10H IV Last administered on 03:56; Admin Dose 100 MLS/HR; Start 12/07/16 at 11:00 Hydralazine HCl 10 mg 10 mg Q8H PRN IV ELEVATED BLOOD PRESSURE; Start 12/07/16 at 15:30 Metronidazole 100 ml @ 100 mls/hr Q8H IVPB Last administered on 12/09/16 06: 12; Admin Dose 100 MLS/HR; Start 12/09/16 at 06:00 Aztreonam (Azactam 1gm/NS (Pmx)) 50 ml @ 100 mls/hr Q8H IVPB Last administered on 12/09/16 05:31; Admin Dose 100 MLS/HR; Start 12/09/16 at 06:00 AJ SMITH Dec 09, 2016 14:18
[2016-12-09 14:21] VITALS: BP 113/59; RESP 22
[2016-12-09] MEDS: metroNIDAZOLE 500 MG TAB PO SCH ×2 (15:10→21:29)
[2016-12-09 19:14] VITALS: BP 113/58; RESP 18
[2016-12-10] MEDS: metroNIDAZOLE 500 MG TAB PO SCH ×2 (05:49→13:54)
[2016-12-10] MEDS: AZTREONAM 1 GM/NS (PMX) 50 ML IVPB SCH (05:49)
[2016-12-10] MEDS: PANTOPRAZOLE (EC) 40 MG TAB PO SCH (05:49)
[2016-12-10] MEDS: SOD CHLORIDE 0.9% 1,000 ML IV SCH (05:51)
[2016-12-10 06:41] LABS: HEMOGLOBIN 11.4 g/dl (14.0-18.0); LYMPHOCYTES # 1.6 10^3/ul (0.8-2.9); LYMPHOCYTES % 10.1 % (15.0-51.0); MEAN CORPUSCULAR HEMOGLOBIN 29.6 pg (29.0-33.0); MEAN CORPUSCULAR HGB CONC 33.6 g/dl (32.0-37.0); MEAN CORPUSCULAR VOLUME 88.2 fl (82.0-101.0); MEAN PLATELET VOLUME 7.4 fl (7.4-10.4); MONOCYTE # 0.6 10^3/ul (0.3-0.9); MONOCYTES % 3.6 % (0.0-11.0); NEUTROPHIL # 13.9 10^3/ul (1.6-7.5); NEUTROPHILS % 86.3 % (39.0-77.0); PLATELET COUNT 434 10^3/UL (140-440); RED BLOOD COUNT 3.85 10^6/ul (4.70-6.10); RED CELL DISTRIBUTION WIDTH 14.6 % (11.5-14.5); UNCORRECTED WBC 16.1 10^3/ul (4.8-10.8); WHITE BLOOD COUNT 16.1 10^3/ul (4.8-10.8)
[2016-12-10 06:42] LABS: ALBUMIN 3.3 g/dl (3.3-4.9); POTASSIUM 3.3 mmol/L (3.5-5.1)
[2016-12-10 06:43] LABS: PHOSPHORUS 3.2 mg/dl (2.5-4.9)
[2016-12-10 06:44] LABS: CREATININE 0.79 mg/dl (0.61-1.24)
[2016-12-10 06:45] LABS: ALBUMIN/GLOBULIN RATIO 0.78; BILIRUBIN,INDIRECT 0.1 mg/dl (0-1.1); BILIRUBIN,TOTAL 0.1 mg/dl (0.2-1.3); CALCIUM 8.8 mg/dl (8.4-10.2); TOTAL PROTEIN 7.5 g/dl (6.1-8.1)
[2016-12-10 06:58] LABS: CONDITION 1; LH ANALYZER COMMENTS 1
[2016-12-10 07:18] VITALS: BP 138/62; RESP 18
[2016-12-10] MEDS ORDERED: POTASSIUM CHLORIDE (SR) 20 MEQ TAB PO STA (10:37)
[2016-12-10] MEDS ORDERED: LEVOFLOXACIN 750 MG TABLET PO SCH (11:00)
--- NOTE | 2016-12-10 15:38 | PN ---
Date/Time of Note Date/Time of Note DATE: 12/10/16 TIME: 15:24 Assessment/Plan VTE Prophylaxis VTE Prophylaxis Intervention: SCD's Lines/Catheters [facility] Peripheral IV Urinary Cath still in place: No Assessment/Plan Assessment/Plan 76 yo male with: 1. ? Migrated biliary stent with intra hepatic and CBD dilatation, s/p ERCP with actual findings of choledocholithiasis Dyspepsia and abdominal pain resolved, leukocytosis much improved Tolerating po and advancing diet D/c home today with Flagyl and Levaquin x 7 days Follow up with GI as needed 2. Small collection of fluid in the gallbladder fossa of unclear etiology or clinical significance, too small for IR drainage per Dr Arroyo, continue abx at discharge 3. Hypertension: Resume home meds. 4. Hyperlipidemia: on Lipitor. Prophylaxis: PPI for GI ppx and SCDs for DVT ppx Disposition: D/c plan home today, f/u with PCP and GI. Subjective 24 Hr Interval Summary Free Text/Dictation Patient doing well No fevers, tolerating po very well and asymptomatic WBC trended down No further complaints Exam/Review of Systems Vital Signs Vitals Vital Signs Date Time Temp Pulse Resp B/P Pulse Ox O2 Delivery O2 Flow Rate FiO2 12/10/16 07:18 97.6 50 18 138/62 97 12/08/16 19:48 Nasal Cannula 2.0 Intake and Output 12/09/16 12/09/16 12/10/16 15:00 23:00 07:00 Intake Total 2465 ml 350 ml Balance 2465 ml 350 ml Exam Constitutional: alert, oriented, well developed Respiratory: clear to auscultation, normal air movement Cardiovascular: nl pulses, regular rate and rhythm Gastrointestinal: non-tender, soft Musculoskeletal: nl extremities to inspection Extremities: normal pulses Neurological: AREA LOSS PREVENTION MANAGER II-XII intact, nl mental status, nl speech, nl strength Results Result Diagram: 12/10/16 0540 12/10/16 0540 Results 24 hrs Laboratory Tests Test 12/10/16 05:40 Alanine Aminotransferase (ALT/SGPT) 26 Albumin 3.3 Albumin/Globulin Ratio 0.78 Alkaline Phosphatase 142 H Anion Gap 17 H Aspartate Amino Transf (AST/SGOT) 24 Basophils # 0.0 Basophils % 0.0 Blood Morphology Comment Blood Urea Nitrogen 30 H Calcium Level 8.8 Carbon Dioxide Level 25 Chloride Level 107 Creatinine 0.79 Direct Bilirubin 0.00 Eosinophils # 0.0 Eosinophils % 0.0 Globulin 4.20 H Glucose Level 115 # Hematocrit 34.0 L Hemoglobin 11.4 L Indirect Bilirubin 0.1 Lymphocytes # 1.6 Lymphocytes % 10.1 L Magnesium Level 2.0 Mean Corpuscular Hemoglobin 29.6 Mean Corpuscular Hemoglobin Concent 33.6 Mean Corpuscular Volume 88.2 Mean Platelet Volume 7.4 Monocytes # 0.6 Monocytes % 3.6 Neutrophils # 13.9 H Neutrophils % 86.3 H Nucleated Red Blood Cells # 0.0 Nucleated Red Blood Cells % 0.0 Phosphorus Level 3.2 Platelet Count 434 # Potassium Level 3.3 L Red Blood Count 3.85 L Red Cell Distribution Width 14.6 H Sodium Level 146 H Total Bilirubin 0.1 L Total Protein 7.5 White Blood Count 16.1 H Medications Medications Current Medications Acetaminophen (Tylenol Tab) 650 mg Q4H PRN PO pain/fever Last administered on 20:27; Admin Dose 650 MG; Start 12/07/16 at 03:00 Ondansetron HCl (Zofran Inj) 4 mg Q4H PRN IV nausea; Start 12/07/16 at 03:00 Morphine Sulfate (morphine) 4 mg Q4H PRN IV pain; Start 12/07/16 at 03:00 Pantoprazole (Protonix Tab) 40 mg DAILY@06 PO Last administered on 12/10/16 05 :49; Admin Dose 40 MG; Start 12/07/16 at 06:00 Hydralazine HCl (Apresoline) 10 mg Q8H PRN IV ELEVATED BLOOD PRESSURE; Start at 15:30 Metronidazole (Flagyl) 500 mg Q8 PO Last administered on 12/10/16 13:54; Admin Dose 500 MG; Start 12/09/16 at 14:30 Levofloxacin (Levaquin) 750 mg DAILY PO Last administered on 12/10/16 12:03; Admin Dose 750 MG; Start 12/10/16 at 11:00 AJ SMITH Dec 10, 2016 15:37
--- NOTE | 2016-12-10 15:39 | PDOCDIS ---
Discharge Instructions CONDITION Patient Condition: Good HOME CARE INSTRUCTIONS: Special Diet: mec soft ACTIVITY: Activity Restrictions: No Restrictions FOLLOW UP/APPOINTMENTS Appointments Follow up with PCP within 1 to 2 weeks Follow up with Dr Luc MATTHEWS as needed in 2 to 4 weeks AJ SMITH Dec 10, 2016 15:39
[2016-12-10] MEDS ORDERED: LEVO750T25 PO (15:40)
[2016-12-10] MEDS ORDERED: METR500T PO (15:40)
== END 2016-12-10 16:40 | disposition home or self-care (01) | DRG 446 ==
LOC: E/R 17:45 → MS2 12-07 03:00 → UNDOADMOB 12-07 03:00 → MS2 12-07 03:06 → OBSVTOIN 12-08 20:24
PROVIDERS: ADMIT Legal Medicine; ATTEND Legal Medicine
PROC: 0FPB8DZ Removal of Intraluminal Device from Hepatobiliary Duct, Via Natural or Artificial Opening Endoscopic (ICD-10-PCS; 2016-12-08)
PROC: 0FC98ZZ Extirpation of Matter from Common Bile Duct, Via Natural or Artificial Opening Endoscopic (ICD-10-PCS; principal; 2016-12-08 18:00)
DX: K80.50 Calculus of bile duct without cholangitis or cholecystitis without obstruction (principal); I10 Essential (primary) hypertension; E78.5 Hyperlipidemia, unspecified
CPT/HCPCS: 36415; 36430; 74176; 74181; 74330; 78226; 80048; 80053; 80061; 81001; 81003; 83605; 83690; 83735; 84100; 85025; 85610; 85730; 86850; 86900; 86901; 87086; 96361; 96365; 96375; A9537; G0378; J1100; J2001; J2250; J2270; J2405; J2543; J3010; J3370; J7030; J7040; P9059; Q9967

== ENCOUNTER 2017-02-02 08:24 | Day surgery (SDC) | payer MEDICARE, OTHER ==
[2017-02-02] VITALS (9 sets, daily range): BP systolic 103–115; BP diastolic 58–62; PULSE 54–69; RESP 16–24; Ht 162.6 cm; Wt 78.2 kg
[~2017-02-02] VITALS: Ht 162.6 cm; Wt 78.2 kg
[~2017-02-02 08:24] MED LIST: LEVO750T25 PO; METR500T PO; SEVOFLURANE 15 MIN ONE
[2017-02-02] MEDS ORDERED: LOSA1TAB3 PO (09:43)
[2017-02-02] MEDS ORDERED: OMEP20CA16 PO (09:43)
[2017-02-02] MEDS ORDERED: LISI20TA11 PO (09:44)
[2017-02-02] MEDS ORDERED: HYDR12.58 PO (09:44)
[2017-02-02 10:00] LABS: CALCIUM 9.5 mg/dl (8.4-10.2); CREATININE 0.75 mg/dl (0.61-1.24)
[2017-02-02] MEDS ORDERED: ONDANSETRON 4 MG INJ IV PRN (10:00)
[2017-02-02] MEDS ORDERED: MEPERIDINE 25 MG INJ IV PRN (10:00)
[2017-02-02] MEDS ORDERED: HYDROmorphONE (0.2 MG/ML) 10ML SYG IV PRN (10:00)
[2017-02-02] MEDS ORDERED: DIPHENHYDRAMINE 50 MG INJ IV PRN (10:00)
[2017-02-02] MEDS ORDERED: FENTAnyl 50 MCG/ML VIAL IV PRN (10:00)
[2017-02-02] MEDS ORDERED: SUCCINYLCHOLINE CHLORIDE 100 MG/5 ML SYG IV ONE (10:10)
[2017-02-02] MEDS ORDERED: LIDOCAINE 2% (SDV) 5 ML INJ ONE (10:10)
[2017-02-02] MEDS ORDERED: PROPOFOL 20 ML ONE (10:10)
--- NOTE | 2017-02-02 10:11 | HPN ---
Date/Time of Note Date/Time of Note DATE: 02/02/17 TIME: 10:10 Interval H&P Admission Note no change in h/p JOSÉ MANUEL PERDUE MD Feb 02, 2017 10:10
[2017-02-02] MEDS ORDERED: METOCLOPRAMIDE 10 MG INJ ONE (10:35)
[2017-02-02] MEDS ORDERED: DEXAMETHASONE 4 MG/ML 1 ML INJ ONE (10:35)
[2017-02-02] MEDS ORDERED: ONDANSETRON 4 MG INJ ONE (10:35)
--- NOTE | 2017-02-02 11:27 | GILP ---
DATE OF PROCEDURE: NAME OF PROCEDURE: ERCP and balloon sweep and biopsy of the ampulla. PREOPERATIVE DIAGNOSIS: Patient presenting with history of multiple stones in the past. CBD stones were removed and stent was placed. At this time, procedure is performed to rule out retained CBD st ones and remove the stent. POSTOPERATIVE DIAGNOSES: 1. Prominent ampulla. 2. CBD stent is not seen, probably had passed. 3. Dilated common bile duct. DESCRIPTION OF PROCEDURE: After the informed written consent was obtained, the patient was intubate d by anesthesiologist, Dr. Wang. When the patient was in prone position, Olympus video side-viewing duodenoscope was inserted into the oropharynx, then into the esophagus, subsequently into the stoma ch and then duodenum. There is evidence of a prominence of the ampulla noted. No CBD stent noted, indicating that the patient may have passed the stone. However, cannulation was performed by using the Dreamtome, the common bile duct appeared to be dilated up to 12 mm in diameter and some filling defects noted in the distal bile duct and at this time by using the balloon, balloon sweeping was pe rformed. No stones were removed. No stones were seen. At this time, the ampulla was found to be prominent, hence 2 biopsies were obtained to rule out ampu llary carcinoma. Scope at this time was withdrawn and no additional abnormalities detected and the procedure was terminated. PLAN: Recommend wait for the biopsy of the ampulla. Dictated By: JOSÉ MANUEL VILLAFANA/GURINDER Conf#: [id number] DID#: [id number]
--- NOTE | 2017-02-02 17:53 | RADRPT ---
PROCEDURE: Intraoperative imaging for ERCP with fluoroscopy. CLINICAL INDICATION: Right upper quadrant pain. Intraoperative. TECHNIQUE: 9 images of the right upper quadrant of the abdomen were obtained in the operating room with an image intensifier. No radiologist was in attendance. 0.4 minutes of fluoroscopy time was used. COMPARISON: 12/08/2016. FINDINGS: Images demonstrate the endoscope in position. Contrast was injected into the common bile duct. The common bile duct is dilated. Surgical clips are present from previous cholecystectomy. There is n arrowing of the distal common bile duct which may indicate an obstructing lesion. IMPRESSION: 1. ERCP as described above. RPTAT: QQ .Jakob Arroyo MD, MD Date Time Electronically viewed and signed by .Jakob Arroyo MD, MD on 02/02/2017 17:52 .R/
--- NOTE | 2017-02-02 19:21 | RADRPT ---
Vent Rate: 56 bpm RR Interval: 0 msec SD Interval: 160 msec QRS Duration: 84 msec QT Interval: 436 msec QTC Interval: 420 msec P-R-T [place]: 50 - 44 - 52 degrees Sinus bradycardia Otherwise normal ECG Electronically Signed By: Itz Domínguez [id number]
== END 2017-02-02 12:45 | disposition home or self-care (01) ==
LOC: SDS 08:24 → GIL 08:24 → SDS 12:45
PROVIDERS: ATTEND Internal Medicine Gastroenterology
DX: K83.8 Other specified diseases of biliary tract (principal)
CPT/HCPCS: 43277; 74330; 80048; 88305; 93005; J0330; J1100; J2405; J2765